=== PATIENT | male | born 1990 | race Caucasian/White ===

== ENCOUNTER 2018-06-17 09:41 | Emergency (ER) | payer MEDICAID, SELFPAY ==
[2018-06-17 09:48] VITALS: BP 143/87; PULSE 69; RESP 16; TEMP 36.5; O2SAT 98
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
--- NOTE | 2018-06-17 10:35 | DI.RAD_ITS ---
SYMPTOM/DIAGNOSIS: SYNCOPE PELVIS AND RIGHT HIP: No fracture or dislocation is seen. The hip joint spaces are well maintained. The pubic symphysis and SI joints appear intact. IMPRESSION: Negative pelvis and right hip
--- NOTE | 2018-06-17 10:35 | DI.RAD_ITS ---
SYMPTOM/DIAGNOSIS: TRAUMA, SACRAL AND TAILBONE PAIN SACRUM AND COCCYX: There is no evidence of fracture. The SI joints and pubic symphysis appear intact. IMPRESSION: Negative sacrum and coccyx.
== END 2018-06-17 11:46 | disposition home or self-care (01) ==
PROVIDERS: Emergency Provider Student in an Organized Health Care Education/Training Program; PCP Family Medicine
DX: M25.551 Pain in right hip (principal); M53.3 Sacrococcygeal disorders, not elsewhere classified; V86.52XA Driver of snowmobile injured in nontraffic accident, initial encounter; Z53.29 Procedure and treatment not carried out because of patient's decision for other reasons; I10 Essential (primary) hypertension
CPT/HCPCS: 99284; 72220; 73502

== ENCOUNTER 2018-06-26 01:03 | Outpatient (CLI) | payer MEDICAID, SELFPAY ==
--- NOTE | 2018-06-26 14:09 | DI.CT_ITS ---
SYMPTOM/DIAGNOSIS: PLEASE R/O ACETABULAR FX. INJURY V86.92XA CT PELVIS: Comparison is made with plain films dated 17 Jun 2018. There is no evidence of acetabular fracture or other fracture. No joint effusion is visible. No soft tissue hematomas are identified. The bladder, prostate and visualized portions of the bowel are unremarkable. IMPRESSION: Negative CT pelvis.
== END 2018-06-26 01:23 ==
PROVIDERS: PCP Family Medicine; Visit Provider Family Medicine
DX: M25.551 Pain in right hip (principal); S79.911D Unspecified injury of right hip, subsequent encounter
CPT/HCPCS: 72192

== ENCOUNTER 2019-03-08 16:37 | Emergency (ER) | payer MEDICAID, SELFPAY ==
--- NOTE | 2019-03-08 16:48 | NUR.NOTE ---
Nursing Note: pt was bitten by his own dog at approximately 1630 left thumb pt is concerned for infection small 2 cm superficial laceration
[2019-03-08 16:49] VITALS: BP 154/95; PULSE 77; RESP 16; TEMP 36.7; O2SAT 99
--- NOTE | 2019-03-08 17:05 | ED.GENADUL_ITS ---
Discharge Plan Disposition Patient Disposition: HOME Condition: Stable Discharge Details Chief Complaint: Laceration Clinical Impression: Dog bite of finger Primary Care Provider: Srinivasa Schmidt ED Provider: Carlene Marquez Home Meds and New Rx's Prescriptions: New amoxicillin-pot clavulanate [Augmentin] 875-125 mg tablet 1 tab PO BID 10 Days Qty: 20 RF: 0 Discharge Instructions Instructions: Animal Bite (ED) Additional Instructions: Take the antibiotics until finished. Keep wound clean and dry. Cover with topical antibiotic ointment if you develop any redness, pain or swelling. Follow-up with your primary care doctor next week for reevaluation. Return to the emergency department if you develop any worsening or new concerning symptoms. Discharge Data Discharge Date/Time-TO BE ENTERED AT DEPARTURE: 03/08/19 18:09 Discharge Physician: Carlene Marquez Medical Decision Making 28-year-old male presents with dog bite to left thumb sustained just prior to arrival. Tetanus up-to-date. There is a 1.5 cm laceration noted proximal to the nailbed without evidence of nail injury. There is no active bleeding. Wound was irrigated. The wound edges are well approximated and there is no gaping open wound that would need even loose stitching. Patient states the dog was a [place] and is a larger dog and denies any chance of foreign body such as tooth. He has no evidence of bony injury and has normal range of motion of the thumb. He is declining x-ray to rule out fracture versus foreign body. He was given 1 dose of Augmentin here as well as prescription. He was instructed on the importance of good wound care to follow-up with his primary care doctor and return here at any time if worse. HPI General Mode of arrival: ambulatory . Date/Time Provider Initiated Documentation: 03/08/19 16:52 . Limitations to Documentation: no limitations . Information obtained by: patient . HPI Narrative: Patient is a 28-year-old male presents with dog bite to his left thumb sustained just prior to arrival. Patient states his own dog is a [place] and bit him while he was trying to get something from him. He states the dog is up-to-date on his shots. Patient states his tetanus is up-to-date. He denies any significant bony pain or excessive bleeding. He denies any other injuries. Related Data Home Medications Medication Instructions Recorded Confirmed amoxicillin-pot clavulanate 1 tab PO BID 10 Days #20 tab 03/08/19 [Augmentin] Previous Rx's Medication Instructions Recorded amoxicillin-pot clavulanate 1 tab PO BID 10 Days #20 tab 03/08/19 [Augmentin] Allergies Allergy/AdvReac Type Severity Reaction Status Date / Time No Known Allergies Allergy Unverified 06/21/18 13:16 General Stated Complaint: Laceration PARKER: 4 Review of Systems Review of Systems All systems reviewed & are unremarkable except as noted in HPI and below Constitutional Reports as per HPI, Denies chills and Denies fever(s) Eyes Denies blurry vision ENT Denies dizziness, Denies sore throat and Denies throat swelling Cardiovascular Denies chest pain and Denies dyspnea Respiratory Denies cough and Denies dyspnea Gastrointestinal Denies abdominal pain, Denies diarrhea and Denies vomiting Genitourinary Denies hematuria and Denies dysuria Musculoskeletal Denies back pain and Denies numbness Integumentary/Breasts Denies lesions and Denies rash Neurologic Denies dizziness, Denies focal weakness and Denies numbness Allergic/Immunologic Denies throat swelling [facility] Medical History No significant past medical history (Acute) Surgical History No significant past surgical history (Acute) Social History Smoking/Tobacco Use Status: Current every day Tobacco Type: cigarettes Counseling given: other Details: patient is decreasing cigs on his own, down to 8/day Alcohol Intake: never Drug use: Never Substance use type: does not use Adopted: Yes Foster care: Yes (in the past, age 12-18) Household members: significant other Number of Children: 1 current occupation: 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 Sexually active: Yes Do you feel safe at home: Yes Do you feel safe in your relationship?: Yes Exam Const General: cooperative, healthy appearing and no acute distress HENMT Head: normal to inspection Mouth: oral mucosae normal Eyes General: appearance normal, both eyes and all related structures Neck Neck: normal visual inspection Resp Effort & Inspection: normal respiratory effort and able to speak in complete se ntences Cardio Rate: regular rate Skin General skin exam: no rashes or lesions noted Neuro General: alert, awake and oriented x3 Motor: muscle tone normal throughout and strength 5/5 throughout Sensory Exam: no sensory deficits noted Other: Normal tendon function noted to left thumb. Normal range of motion. Motor/sensory grossly intact to left thumb. Extrem Other: 1.5 cm straight laceration through skin just proximal to nail bed. There is no active bleeding, surrounding erythema, edema, ecchymosis, induration, fluctuance. No evidence of nail injury. Psych Appearance: grossly normal Affect: normal affect Course Vital Signs Temperature 98.1 F 03/08/19 16:49 Pulse 77 03/08/19 16:49 Respiratory Rate 16 03/08/19 16:49 Blood Pressure 154/95 H 03/08/19 16:49 Pulse Oximetry 99 03/08/19 16:49 Temperature 98.1 F 03/08/19 16:49 Temperature Source Skin 03/08/19 16:49 Pulse 77 03/08/19 16:49 Respiratory Rate 16 03/08/19 16:49 Blood Pressure 154/95 H 03/08/19 16:49 Blood Pressure Position Sitting 03/08/19 16:49 Pulse Oximetry 99 03/08/19 16:49 Oxygen Delivery Method Room Air 03/08/19 16:49 Oxygen Flow Rate 0 03/08/19 16:49 Pain Level 9 03/08/19 16:49
[2019-03-08] MEDS: Amoxicillin 875/Clav. 125 TAB PO ×2 (18:13)
== END 2019-03-08 18:09 | disposition home or self-care (01) ==
PROVIDERS: Emergency Provider Physician Assistant; PCP Family Medicine
DX: S61.052A Open bite of left thumb without damage to nail, initial encounter (principal); W54.0XXA Bitten by dog, initial encounter
CPT/HCPCS: 12001; 99283

== ENCOUNTER 2021-01-06 21:17 | Emergency (ER) | payer MEDICAID, SELFPAY ==
[2021-01-06 21:19] VITALS: BP 163/89; PULSE 84; RESP 20; TEMP 37.1; O2SAT 97
--- NOTE | 2021-01-06 21:31 | W.ED.GENAD ---
Discharge Plan Disposition Patient Disposition: HOME Condition: Stable Discharge Details Chief Complaint: GenMedical Clinical Impression: Cephalgia, Leukocytosis, Adverse effect of COVID-19 vaccine Primary Care Provider: Srinivasa Schmidt ED Provider: Shiv Blue Home Meds and New Rx's Prescriptions: No Action No Known Home Meds RF: 0 Discharge Instructions Instructions: General Headache (ED), Leukocytosis (ED) Additional Instructions: At this time as we discussed your white blood cell count is elevated which can certainly be a very normal reaction to a vaccine however you were given strict return precautions. You are feeling improved and would like to be discharged home. [id number] Tylenol and/or Motrin as directed for discomfort. Rest, plenty of fluids to avoid dehydration. As we discussed, please watch for new or worsening symptoms and return to the ER for any concerns. Medical Decision Making 30-year-old gentleman, history of back surgery at age 14, current smoker, denies any drug use, presents for evaluation via EMS for what he describes as a reaction to his second Pfizer vaccine approximately 3 hours after he received the vaccine at 3 PM today. Clinically he appears well, nontoxic, neurologically intact. I was able to witness him ambulating steadily to the restroom. Upon my evaluation he was using the phone without difficulty. Patient later tells me that his headache is actually common, 2 or 3 times a month, and this began 2 days ago. He states that if he can simply feel a little better he would like to go home. Will obtain IV access, give IV Reglan, Benadryl, IV fluid, Toradol, obtain CBC, CMP, urinalysis and reassess. Patient is comfortable with this plan. Laboratory values reveal leukocytosis of 19.17, absolute neutrophils 13.17, glucose 120, calcium 8.4, AST 12, otherwise unremarkable. Urinalysis without signs of infection. Patient was again witnessed ambulating without difficulty. No focal deficit. No evidence of ataxia. Upon reevaluation he reports feeling much improved with the IV fluid and medication. He reports his headache is almost completely resolved. Continues to deny neck pain, focal weakness, numbness, tingling. No midline point tenderness of his lumbar spine. Denies any IV drug use. The nonspecific leukocytosis very well may be a reaction to his vaccine around 3 PM today. I see no glaring red flags that would indicate meningeal signs, spinal abscess, cauda equina, sepsis, etc. I see no clear indication for advanced imaging of the brain or LP. Patient plans to rest, drink plenty of fluids, alternate between Tylenol and/or Motrin for discomfort. He was given strict return precautions. Medical Records Medical records reviewed: Yes I reviewed the patient's medical records. Lab Data Lab results reviewed: Yes I reviewed the patient's lab results. Labs: Laboratory Tests Range/Units 01/06/21 01/06/21 01/06/21 21:50 21:55 21:55 WBC (4.4-10.8) 10^3/uL 19.17 H RBC (4.36-5.78) 10^6/uL 5.49 Hgb (13.5-17.5) g/dL 16.4 Hct (40.0-50.0) % 47.4 MCV (80-95) fL 86.3 MCH (27.0-33.0) pg 29.9 MCHC (32.0-36.0) % 34.6 RDW (11.8-14.1) % 12.8 Plt Count (130-400) 10^3/uL 210 MPV (8.0-11.0) fL 10.2 Immature Gran % 0.5 Neutrophils % 68.7 Lymphocytes % 19.5 Monocytes % 7.7 Eosinophils % 3.0 Basophils % 0.6 Nucleated RBC % % 0 Absolute Neutrophils (1.2-6.7) 10^3/uL 13.17 H Absolute Lymphocytes (1.2-3.4) 10^3/uL 3.74 H Absolute Monocytes (0.1-0.8) 10^3/uL 1.48 H Absolute Eosinophils (0.0-0.7) 10^3/uL 0.58 Absolute Basophils (0.0-0.2) 10^3/uL 0.12 Sodium (136-145) mmol/L 140 Potassium (3.5-5.1) mmol/L 3.9 Chloride (98-107) mmol/L 103 Carbon Dioxide (21.0-32.0) mmol/L 26.2 Anion Gap (3-11) mmol/L 10.8 BUN (7-18) mg/dL 10 Creatinine (0.70-1.30) mg/dL 1.0 Estimated GFR/1.73 m2 (mL/min/1.73m2) >= 60.00 Glucose (74-106) mg/dL 120 H Calcium (8.5-10.1) mg/dL 8.4 L Total Bilirubin (0.2-1.0) mg/dL 0.4 AST (15-37) U/L 12 L ALT (16-63) U/L 22 Alkaline Phosphatase (46-116) U/L 100 Total Protein (6.4-8.2) g/dL 7.3 Albumin (3.4-5.0) g/dL 3.6 Urine Color (Yellow) Yellow Urine Clarity (Clear) Clear Urine pH (5-8) 6.5 Ur Specific [place] (1.005-1.025) >= 1.030 H Urine Protein (Negative) mg/dL Negative Urine Ketones (Negative) mg/dL Negative Urine Blood (Negative) Negative Urine Nitrite (Negative) Negative Urine Bilirubin (Negative) Negative Urine Urobilinogen (Up TO 0.2) EU/dL 1.0 H Ur Leukocyte Esterase (Negative) Negative Urine Glucose (Negative) mg/dL Negative HPI General Mode of arrival: EMS. Date/Time Provider Initiated Documentation: 01/06/21 21:25. Limitations to Documentation: no limitations. Information obtained by: patient and EMS. HPI Narrative: This is a 30-year-old gentleman, reports past medical history of back surgery at age 14, current smoker, presenting via EMS for what he describes as a reaction to his second Pfizer Covid vaccine at approximately 3 PM this afternoon. Patient reports approximately 3 hours later he developed symptoms that include a global headache, generalized weakness, worse in his bilateral legs, chills. He took 800 mg of Motrin prior to arrival. Patient later tells me that he has had this headache for the past 2 days, gets 2 or 3 similar migraines a month. He reports the migraine came on slowly, is global but has progressed over the past couple of days, only partially treated with [id number] medications, moderate now. He denies recent illness or trauma. He denies fever, visual changes, neck pain, chest pain, shortness of breath, abdominal pain, nausea vomiting, change in bowel or bladder function, numbness, tingling, focal weakness. He also reports body aches, worse in his lower back and bilateral legs. Related Data Home Medications Medication Instructions Recorded Confirmed Unknown [No Known Home Meds] 01/06/21 01/06/21 Allergies Allergy/AdvReac Type Severity Reaction Status Date / Time No Known Allergies Allergy Unverified 01/06/21 21:25 General Stated Complaint: GenMedical PARKER: 2 Review of Systems Constitutional Constitutional: Denies fatigue, Denies fever(s) and Reports headache(s) Eyes Eyes: Denies change in vision ENT Ears, Nose, Mouth, and Throat: Reports headache(s) and Denies neck pain Cardiovascular Cardiovascular: Denies chest pain and Denies dyspnea Respiratory Respiratory: Denies cough and Denies dyspnea Gastrointestinal Gastrointestinal: Denies abdominal pain, Denies nausea and Denies vomiting Genitourinary Genitourinary: Denies dysuria Musculoskeletal Musculoskeletal: Reports back pain, Reports myalgias, Denies neck pain, Denies numbness, Denies stiffness and Denies tingling Integumentary/Breasts Skin/Breast: Denies rash Neurologic Neurologic: Reports headache(s), Denies numbness, Denies tingling and Reports weakness (Generalized, no focal) Endocrine Endocrine: Denies fatigue [facility] Medical History (Updated 01/06/21 @ 22:49 by TAVO Palacios) No significant past medical history Surgical History No significant past surgical history Social History Smoking/Tobacco Use Status: Current every day Tobacco Type: cigarettes Counseling given: other Details: patient is decreasing cigs on his own, down to 8/day Smoking risk assessment performed?: Yes Alcohol Intake: never Drug use: Never Substance use type: does not use Adopted: Yes Foster care: Yes (in the past, age 12-18) Household members: significant other Number of Children: 1 current occupation: 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 Sexually active: Yes Do you feel safe at home: Yes Do you feel safe in your relationship?: Yes Exam Const General: cooperative, healthy appearing, comfortable and no acute distress Orientation: alert, awake and oriented x3 HENMT Head: normal to inspection, normocephalic and atraumatic Face and sinus: normal facial exam Mouth: moist mucous membranes Throat: posterior oropharynx normal Eyes General: appearance normal, both eyes and all related structures Alignment and Position: alignment normal Periorbital: periorbital findings normal Eyelids: eyelids normal Conjunctivae: conjunctivae normal Sclera: sclerae normal Cornea: corneas normal Pupils: PERRL EOM: EOM intact bilaterally Direct ophthalmoscopy: normal light reflex Neck Neck: normal visual inspection, full ROM, no lymphadenopathy, no meningeal signs, trachea midline, supple and nontender Resp Effort & Inspection: normal respiratory effort and able to speak in complete sentences Auscultation: clear to auscultation bilaterally Cardio Rate: regular rate Rhythm: regular rhythm GI Palpation: soft and nontender Auscultation: normal bowel sounds Back/Spine/Pelvis Back: no CVA tenderness and back tenderness (Diffuse mild lumbar) Skin General skin exam: no rashes or lesions noted Neuro General: patient alert, patient awake, patient oriented x3, moves all extremities and no focal motor deficits Cognition: normal cognition Speech: speech normal Gait: normal gait Motor: muscle tone normal throughout and strength 5/5 throughout Sensory Exam: no sensory deficits noted Extrem General: normal to inspection, full ROM, capillary refill normal, no pedal edema and no calf tenderness Psych Appearance: grossly normal Mental Status: mental status grossly normal Course Vital Signs Vital signs: Vital Signs Temperature 37.1 C 01/06/21 21:19 Pulse 84 01/06/21 21:19 Respiratory Rate 20 01/06/21 21:19 Blood Pressure 163/89 H 01/06/21 21:19 Pulse Oximetry 97 01/06/21 21:19 Temperature 37.1 C 01/06/21 21:19 Temperature Source Skin 01/06/21 21:19 Pulse 84 01/06/21 21:19 Respiratory Rate 20 01/06/21 21:19 Respiratory Effort Non-Labored 01/06/21 21:26 Blood Pressure 163/89 H 01/06/21 21:19 Blood Pressure Position Supine 01/06/21 21:19 Pulse Oximetry 97 01/06/21 21:19 Oxygen Delivery Method Room Air 01/06/21 21:19 Oxygen Flow Rate 0 01/06/21 21:19 Pain Level 9 01/06/21 21:19
[2021-01-06] MEDS: Normal Saline 1,000 ML 1000 ML IV (22:12)
[2021-01-06] MEDS: diphenhydrAMINE 50 MG/ML VIAL 25 MG IVP (22:13)
[2021-01-06] MEDS: Ketorolac 30 MG/ML VIAL IVP (22:15)
[2021-01-06] MEDS: Metoclopramide 10 MG/2 ML VIAL IVP (22:16)
[2021-01-06 22:17] LABS: Bilirubin Negative (Negative); Blood Negative (Negative); Clarity Clear (Clear); Glucose Negative (Negative); Ketones Negative (Negative); Leukocyte Esterase Negative (Negative); Nitrite Negative (Negative); Specific Gravity >= 1.030 (1.005-1.025); pH 6.5 (5-8)
[2021-01-06 22:18] LABS: ALT 22 U/L (16-63); Albumin 3.6 g/dL (3.4-5.0); Alkaline Phosphatase 100 U/L (46-116); Anion Gap 10.8 mmol/L (3-11); BUN 10 mg/dL (7-18); Bilirubin, Total 0.4 mg/dL (0.2-1.0); CO2 26.2 mmol/L (21.0-32.0); Calcium 8.4 mg/dL (8.5-10.1); Chloride 103 mmol/L (98-107); Glucose 120 mg/dL (74-106); Potassium 3.9 mmol/L (3.5-5.1); Sodium 140 mmol/L (136-145); Total Protein 7.3 g/dL (6.4-8.2)
[2021-01-06 22:20] VITALS: BP 156/80; PULSE 76; RESP 20; O2SAT 97
[2021-01-06 22:26] LABS: AST 12 U/L (15-37); Abs Immature Grans 0.09 10^3/uL (0.0-0.06); Absolute Monocyte Count 1.48 10^3/uL (0.1-0.8); Basophils % 0.6; HCT 47.4 % (40.0-50.0); HGB 16.4 g/dL (13.5-17.5); Immature Grans % 0.5; Lymphocytes % 19.5; MCH 29.9 pg (27.0-33.0); MCHC 34.6 % (32.0-36.0); MCV 86.3 fL (80-95); MPV 10.2 fL (8.0-11.0); Monocytes % 7.7; Neutrophils % 68.7; Nucleated RBC 0 %; Platelet Count 210 10^3/uL (130-400); RBC 5.49 10^6/uL (4.36-5.78); RDW 12.8 % (11.8-14.1); RDW-SD 40.3 fL; WBC 19.17 10^3/uL (4.4-10.8)
[2021-01-06 22:32] LABS: Absolute Basophil Count 0.12 10^3/uL (0.0-0.2); Absolute Eosinophil Count 0.58 10^3/uL (0.0-0.7); Absolute Lymphocyte Count 3.74 10^3/uL (1.2-3.4); Absolute Neutrophil Count 13.17 10^3/uL (1.2-6.7)
[2021-01-06 22:45] VITALS: BP 152/80; PULSE 80; RESP 20; O2SAT 97
[2021-01-06 23:15] VITALS: BP 149/72; PULSE 79; RESP 20; O2SAT 97
== END 2021-01-06 23:49 | disposition home or self-care (01) ==
PROVIDERS: Emergency Provider Physician Assistant; PCP Family Medicine
DX: R51.9 Headache, unspecified (principal); D72.829 Elevated white blood cell count, unspecified; T50.B95A Adverse effect of other viral vaccines, initial encounter
CPT/HCPCS: 36415; 80053; 96361; 96374; 96375; 99284; 81003; 85025; 99283; J1200; J1885; J2765

== ENCOUNTER 2021-11-27 20:12 | Emergency (ER) | payer MEDICAID, SELFPAY ==
[2021-11-27 20:30] VITALS: BP 153/94; PULSE 84; RESP 14; TEMP 35.9; O2SAT 98
--- NOTE | 2021-11-27 20:55 | ED.GENADUL_ITS ---
Discharge Plan Disposition Patient Disposition: HOME Condition: Improving Discharge Details Chief Complaint: EarProblem Clinical Impression: Ear foreign body Primary Care Provider: Srinivasa Schmidt ED Provider: Liborio Mckinney Home Meds and New Rx's Prescriptions: No Action lisinopril 10 mg tablet 10 mg PO DAILY Qty: 90 3RF Discharge Instructions Instructions: Ear Foreign Body (ED) Additional Instructions: Please keep the ear clean and dry. Do not clean deeply with Q-tip. Use hydroperoxide to soak external canal this evening. Please return emergency department if you develop trouble hearing bleeding pus drainage swelling redness headache fevers or other abnormal signs or symptoms. Medical Decision Making 31-year-old male presents with debris in right external ear canal in setting of working under a car, dirt and rocks material. No auditory changes. Does have superficial abrasion to external component of right ear canal where he is attempted to use a Q-tip to remove debris, TM intact. Up-to-date on vaccinations. Was able to use 3 to 5 cc of sterile normal saline with 20-gauge catheter tip to flush external canal, removing multiple small pieces of dirt and rust material. Patient's canal is hemostatic, TM is intact. Hearing intact. No further debris in canal. Home care instructions and return precautions given. HPI General Date/Time Provider Initiated Documentation: 11/27/21 20:19 . HPI Narrative: 31-year-old male denies past medical history presents with right ear discomfort endorses working under a car and having dirt and rust debris fall into his right ear canal. Denies trouble hearing does endorse some irritation to ear canal, attempted to use a Q-tip to scrape out the material and noticed some blood on the Q-tip. He is up-to-date on vaccinations Related Data Home Medications Medication Instructions Recorded Confirmed lisinopril 10 mg tablet 10 mg PO DAILY #90 tab 01/18/21 11/27/21 Previous Rx's Medication Instructions Recorded lisinopril 10 mg tablet 10 mg PO DAILY #90 tab 01/18/21 Allergies Allergy/AdvReac Type Severity Reaction Status Date / Time No Known Allergies Allergy Verified 11/27/21 20:34 General Stated Complaint: EarProblem PARKER: 4 Review of Systems Narrative: Review of Systems Constitutional: negative Eyes: negative ENT: Ear canal foreign bodies Cardiovascular: negative Respiratory: negative Gastrointestinal: negative : negative Musculoskeletal: negative Skin: negative Neurologic: negative Psych: negative PFSH All Active Problems (Updated 11/27/21 @ 21:02 by Liborio Mckinney MD) Ear foreign body (Acute) Cephalgia (Acute) Leukocytosis (Acute) Adverse effect of COVID-19 vaccine (Acute) Essential hypertension (Acute 11/02/17) Medical History (Updated 11/27/21 @ 21:02 by Liborio Mckinney MD) No significant past medical history Surgical History No significant past surgical history Social History Smoking/Tobacco Use Status: Current every day Tobacco Type: cigarettes Counseling given: other Details: patient is decreasing cigs on his own, down to 8/day Smoking risk assessment performed?: Yes Alcohol Intake: never Drug use: Never Substance use type: does not use Adopted: Yes Foster care: Yes (in the past, age 12-18) Household members: significant other Number of Children: 1 current occupation: 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 Sexually active: Yes Do you feel safe at home: Yes Do you feel safe in your relationship?: Yes Exam Narrative Exam Narrative: Physical Examination General: alert, awake, cooperative, resting comfortably, no acute distress HEENT: Dirt and rust material in right ear canal, right TM intact, superficial a brasion to external portion of ear canal hemostatic; normocephalic, atraumatic; PERRL, EOM intact, conjunctiva normal; no nasal discharge; moist mucous membranes, oral and pharyngeal mucosa normal, tolerating secretions Neck: supple, trachea midline; full ROM Chest: normal to inspection Respiratory: normal respiratory effort, speaking in full sentences, clear to auscultation, no wheezing, rales or rhonchi Cardiac: regular rate, regular rhythm, S1S2 intact, no murmurs rubs or gallops GI: abdomen soft, non-tender, non-distended; no palpable mass or hepatosplenomegaly Skin: no lesions, rashes or trauma appreciated Neuro: AAOx3, normal speech, moving all extremities Psych: Appropriate mood and affect Course Vital Signs Vital signs: Vital Signs Temperature 35.9 C L 11/27/21 20:30 Pulse 84 11/27/21 20:30 Respiratory Rate 14 11/27/21 20:30 Blood Pressure 153/94 H 11/27/21 20:30 Pulse Oximetry 98 11/27/21 20:30 Temperature 35.9 C L 11/27/21 20:30 Temperature Source Temporal Artery Scan 11/27/21 20:30 Pulse 84 11/27/21 20:30 Respiratory Rate 14 11/27/21 20:30 Blood Pressure 153/94 H 11/27/21 20:30 Blood Pressure Position Sitting 11/27/21 20:30 Pulse Oximetry 98 11/27/21 20:30 Oxygen Delivery Method Room Air 11/27/21 20:30 Oxygen Flow Rate 0 11/27/21 20:30 Procedures FB Removal Ear Location: ear canal (R) Foreign Body Suspected: other (rust and dirt) TM intact pre-procedure: yes Foreign Body Removed: yes Foreign Body Removal Technique: irrigation Tympanic Membrane Intact: Yes Patient Tolerated Procedure: well
== END 2021-11-27 21:34 | disposition home or self-care (01) ==
PROVIDERS: Emergency Provider Emergency Medicine; PCP Family Medicine
DX: T16.1XXA Foreign body in right ear, initial encounter (principal); X58.XXXA Exposure to other specified factors, initial encounter
CPT/HCPCS: 99282

== ENCOUNTER 2022-01-03 14:26 | Emergency (ER) | payer MEDICAID, SELFPAY ==
[2022-01-03 14:28] VITALS: BP 143/77; PULSE 75; RESP 16; O2SAT 97
--- NOTE | 2022-01-03 15:00 | DI.MRI_ITS ---
Exam(s) MR LUMBAR SPINE WO EXAM: MR LUMBAR SPINE WO CLINICAL HISTORY: back pain, prior surgery, right leg weakness. TECHNIQUE: Multiplanar multisequence MRI of the Lumbar spine was performed. COMPARISON: No exams were available for comparison FINDINGS: Conus medullaris is at normal level. There is no evidence of conus mass nor subjacent clumping of in trathecal nerve roots to suggest arachnoiditis. The distal thecal sac appears unremarkable.There is no evidence of Tarlov intrasacral cysts nor other significant findings within the sacral canal Bones:There are no fractures nor ominous osseous lesions in the lumbar vertebral bodies and visualize d sacrum. With respect to the individual levels... T12-L1: Unremarkable L1-2: Normal disc height and signal. No disc herniation nor central canal stenosis.No foraminal steno sis L2-3: Normal disc height. No disc herniation nor central canal stenosis.No foraminal stenosis.No face t arthropathy. L3-4: Normal disc height. No disc herniation or central canal stenosis.No foraminal stenosis.No face t arthropathy. L4-5: Normal disc height and signal. No disc herniation or canal stenosis. No foraminal stenosis. No facet arthropathy. L5-S1: Normal disc height with some decreased disc hydration signal. There is linear tear in the pos terior annulus with the subligamentous disc herniation extending posteriorly 6 millimeters and approx imately 1.5 cm wide. This contacts the anterior aspect of the thecal sac but without prominent compr ession. Does not obliterate the lateral recesses and does not extend significantly into the exiting neural foramina on either side. Facet joints appear unremarkable. Soft tissues: paraspinal soft tissues appear unremarkable. IMPRESSION: 1. L5-S1 disc herniation as described above. This is predominantly central subligamentous. 2. This disc herniation does not extend into the exiting neural foramina. 3. Although there are disc spaces appear unremarkable and there is no significant facet arthropathy i n the lumbosacral spinal column. DATA REPOSITORY:
[2022-01-03 15:16] VITALS: BP 140/74; PULSE 72; O2SAT 97
[2022-01-03 15:17] VITALS: O2SAT 97
--- NOTE | 2022-01-03 15:27 | W.ED.GENAD ---
Discharge Plan Disposition Patient Disposition: HOME Condition: Stable Discharge Details Clinical Impression: Lumbar radicular pain, Lumbar disc herniation Primary Care Provider: Srinivasa Schmidt ED Provider: Josy Rivera Home Meds and New Rx's Prescriptions: New cyclobenzaprine 10 mg tablet 10 mg PO TID PRNQty: 10 0RF prednisone 20 mg tablet 40 mg PO DAILY Qty: 10 0RF Discharge Instructions Additional Instructions: Please follow-up with your primary care physician [facility] internal medicine Do not lift more than 5 pounds Continue light stretching Take the prednisone as prescribed and the Flexeril as needed for musculoskeletal pain return should you develop changes in bowel or bladder, fever, chills, or if you are unable to ambulate You may take Tylenol 650 mg every 4-6 hours Stand Alone Forms: Physical Therapy Referral Discharge Data Discharge Date/Time-TO BE ENTERED AT DEPARTURE: 01/03/22 16:34 Medical Decision Making The lumbar spine MRI was discussed with Dr. Blackwell and results reviewed by me were available Patient has an L5-S1 disc herniation I and on reassessment is actually ambulatory with antalgic gait, this was personally reviewed with me Will on prednisone and referred to PCP in the outpatient setting Will take Flexeril as needed for musculoskeletal pain No evidence of cauda equina syndrome clinically Return precautions discussed and patient expressed understanding Diminished dorsiflexion and plantarflexion found related to patient's prior surgery to his ankle and states is not new for him HPI General Date/Time Provider Initiated Documentation: 01/03/22 15:06. HPI Narrative: This 31-year-old male presents with reports of back pain for the past several days. He states that he has prior history of surgery on his back. He states he broke his back, when he was 14 years old when an engine fell. He states he had surgery at [facility]. He states over the past several days of pain in his lumbar spine has worsened. He denies any specific trauma. He states today he had right leg weakness which is why he presents. He is the pain in his lumbar spine is also worse. He denies history of IV drug abuse. He denies abdominal pain, pain, shortness of breath. He denies any changes in bowel or bladder. He denies any fever or chills. He denies taking any medications prior to arrival. Related Data Home Medications Medication Instructions Recorded Confirmed cyclobenzaprine 10 mg tablet 10 mg PO TID PRN #10 tabs 01/03/22 prednisone 20 mg tablet 40 mg PO DAILY #10 tabs 01/03/22 Previous Rx's Medication Instructions Recorded cyclobenzaprine 10 mg tablet 10 mg PO TID PRN #10 tabs 01/03/22 prednisone 20 mg tablet 40 mg PO DAILY #10 tabs 01/03/22 Allergies Allergy/AdvReac Type Severity Reaction Status Date / Time No Known Allergies Allergy Verified 01/03/22 14:34 General Stated Complaint: Orthopedic PARKER: 3 Review of Systems All systems reviewed & are unremarkable except as noted in HPI and below PFSH All Active Problems (Updated 01/03/22 @ 16:14 by TAVO Natahn) Lumbar radicular pain (Acute) Lumbar disc herniation (Acute) Cephalgia (Acute) Leukocytosis (Acute) Adverse effect of COVID-19 vaccine (Acute) Essential hypertension (Acute 11/02/17) Medical History (Updated 01/03/22 @ 16:14 by TAVO Nathan) No significant past medical history Surgical History No significant past surgical history Social History Smoking/Tobacco Use Status: Current every day Tobacco Type: cigarettes Counseling given: other Details: patient is decreasing cigs on his own, down to 8/day Smoking risk assessment performed?: Yes Alcohol Intake: never Drug use: Never Substance use type: does not use Adopted: Yes Foster care: Yes (in the past, age 12-18) Household members: significant other Number of Children: 1 current occupation: 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 Sexually active: Yes Do you feel safe at home: Yes Do you feel safe in your relationship?: Yes Exam Const General: cooperative, comfortable and no acute distress Eyes Pupils: PERRL Resp Effort & Inspection: normal respiratory effort Auscultation: clear to auscultation bilaterally Cardio Rate: regular rate Rhythm: regular rhythm Other: distal pulses intact GI Inspection: normal to inspection Other: non-tender abdominal exam Skin General skin exam: no rashes or lesions noted Neuro General: patient alert and patient oriented x3 Cranial Nerves: CN's II-XI intact bilaterally Cognition: normal cognition Speech: speech normal Other: Patient with mildly diminished dorsiflexion and plantarflexion Sensation intact for patient Positive straight leg raise Negative Babinski bilaterally Course Vital Signs Vital signs: Vital Signs Pulse 75 01/03/22 14:28 Respiratory Rate 16 01/03/22 14:28 Blood Pressure 143/77 H 01/03/22 14:28 Pulse Oximetry 97 01/03/22 14:28 Temperature Source Temporal Artery Scan 01/03/22 14:28 Pulse 75 01/03/22 14:28 Respiratory Rate 16 01/03/22 14:28 Respiratory Effort Non-Labored 01/03/22 14:33 Blood Pressure 143/77 H 01/03/22 14:28 Blood Pressure Position Sitting 01/03/22 14:28 Pulse Oximetry 97 01/03/22 14:28 Oxygen Delivery Method Room Air 01/03/22 14:28 Oxygen Flow Rate 0 01/03/22 14:28 Pain Level 10 01/03/22 14:28
[2022-01-03] MEDS: predniSONE 20 MG TAB 40 MG PO (16:15)
[2022-01-03] MEDS: Cyclobenzaprine 10 MG TAB PO (16:15)
[2022-01-03 16:28] VITALS: O2SAT 99
[2022-01-03 16:29] VITALS: BP 143/84; PULSE 70
[2022-01-03 16:33] VITALS: TEMP 36.6
== END 2022-01-03 16:34 | disposition home or self-care (01) ==
LOC: ER 16:28
PROVIDERS: Emergency Provider Physician Assistant; PCP Family Medicine
DX: M51.16 Intervertebral disc disorders with radiculopathy, lumbar region (principal); R53.1 Weakness
CPT/HCPCS: 99283; 72148; J7512

== ENCOUNTER 2024-07-03 19:36 | Emergency (ER) | payer MEDICAID, SELFPAY ==
[2024-07-03 19:39] VITALS: BP 175/111; PULSE 88; RESP 18; TEMP 37.5; O2SAT 97
--- NOTE | 2024-07-03 19:43 | W.ED.GENAD ---
Discharge Plan Disposition Patient Disposition: Home Condition: Stable Discharge Details Clinical Impression: Gastroenteritis Primary Care Provider: Srinivasa Schmidt ED Provider: Pradeep Bhagat Home Meds and New Rx's Prescriptions: New ondansetron 4 mg tablet,disintegrating 4 mg PO Q8H PRNQty: 30 0RF Discharge Instructions Instructions: Viral gastroenteritis in adults, Ondansetron Additional Instructions: You were seen in the emergency department for your diffuse generalized abdominal pain that improves with bowel movements, you state you have diarrhea nausea and vomiting, I am sent you home with a nausea medicine called ondansetron and I have sent a prescription for this medicine to [facility] in [place], you may take [id number] Imodium A-D for diarrhea, please stay well-hydrated, return to the emergency department for any severe increase in abdominal pain especially with fever, intractable nausea/vomiting, chest pain, shortness of breath. Referrals: Srinivasa Schmidt DO [Primary Care Provider] - Discharge Data Discharge Date/Time-TO BE ENTERED AT DEPARTURE: 07/03/24 20:45 HPI General Date/Time Provider Initiated Documentation: 07/03/24 19:42. HPI Narrative: 34 year-old male presents to ED today by POV/ambulating with a chief complaint of 2 days of nausea/vomiting, diarrhea, cramping abdominal pain. Quality described as generalized abdominal pain that is relieved with bowel movements that have been completely liquid with some nausea and scant vomiting, patient endorses chills and muscle aches but denies cough or respiratory symptoms, no radiation to chest pain, shortness of breath, hematochezia or melena, hemoptysis, hematemesis, severe constant abdominal pain, flank pain, dysuria. Severity is described as moderate. Palliating factors include nothing specific attempted. Provoking factors include nothing specific. Events leading up to the incident/Associated Symptoms: Patient states he has been exposed to somebody with flu. Patient not anticoagulated. Related Data Home Medications ?Medication ?Instructions ?Recorded ?Confirmed ondansetron 4 mg disintegrating 4 mg PO Q8H PRN #30 tabs 07/03/24 tablet Previous Rx's ?Medication ?Instructions ?Recorded ondansetron 4 mg disintegrating 4 mg PO Q8H PRN #30 tabs 07/03/24 tablet Allergies Allergy/AdvReac Type Severity Reaction Status Date / Time No Known Allergies Allergy Verified 07/03/24 19:43 General Stated Complaint: Abd Prob PARKER: 3 Review of Systems All systems reviewed & are unremarkable except as noted in HPI and below Exam Narrative Exam Narrative: GENERAL APPEARANCE: Well-nourished, non-toxic, awake and alert, atraumatic, no acute distress. SKIN: Warm, pink, dry, intact, without rashes/lesions/ulcerations. HEAD: Normocephalic, atraumatic, normal hair distribution for gender/age. EYES: Normal conjunctiva, no exudates on lids/lashes. ENT: Nares patent, no circumoral cyanosis, no facial swelling NECK: Supple, trachea midline, painless cervical ROM. LUNGS/CHEST: Lungs CTA bilaterally- no rhonchi/rales/wheezes diffusely, non-labored respirations, normal A/P diameter, symmetrical expansion, no chest wall deformity HEART (CV/PV): Regular rate and rhythm without murmur, no peripheral edema, no JVD. ABDOMEN: Soft, non-distended, no guarding, no tenderness to palpation. MSK: Normal ROM, no swelling/deformity to bilateral UEs or LEs, moving all extremities without weakness, no cyanosis, spine midline without tenderness, normal curvature. NEURO: Mental Status AAOx4 - alert to person, place, time, events No facial droop, no forehead involvement. Motor: No focal weakness - strength 5/5 in bilateral UEs and LEs, proximal and distal, symmetric. Sensory: sensation intact to light touch globally. Gait normal: patient ambulated without ataxia into ED room. PSYCH: euthymic, cooperative, pleasant, appropriate speech Course Vital Signs Vital signs: Vital Signs Temperature 37.5 C 07/03/24 19:39 Pulse 88 07/03/24 19:39 Respiratory Rate 18 07/03/24 19:39 Blood Pressure 175/111 H 07/03/24 19:39 Pulse Oximetry 97 07/03/24 19:39 Temperature 37.5 C 07/03/24 19:39 Pulse 88 07/03/24 19:39 Respiratory Rate 18 07/03/24 19:39 Respiratory Effort Normal 07/03/24 19:43 Blood Pressure 175/111 H 07/03/24 19:39 Pulse Oximetry 97 07/03/24 19:39 Pain Level 0 07/03/24 19:39 Medical Decision Making This dictation utilizes [id number] dictation software and may contain unedited grammatical errors. 34 year-old male presents to ED today by POV/ambulating with a chief complaint of 2 days of nausea/vomiting, diarrhea, cramping abdominal pain. Quality described as generalized abdominal pain that is relieved with bowel movements that have been completely liquid with some nausea and scant vomiting, patient endorses chills and muscle aches but denies cough or respiratory symptoms, no radiation to chest pain, shortness of breath, hematochezia or melena, hemoptysis, hematemesis, severe constant abdominal pain, flank pain, dysuria. Severity is described as moderate. Palliating factors include nothing specific attempted. Provoking factors include nothing specific. Events leading up to the incident/Associated Symptoms: Patient states he has been exposed to somebody with flu. Patients' medical history: Negative, otherwise healthy. Family and social history: Possible exposure to flu in close contact. Pertinent exam findings / vital signs include benign abdomen, lungs CTA, nontoxic vitals. Differential / pathologies of concern include gastroenteritis, unlikely influenza, unlikely sepsis, not intractable nausea or vomiting. Diagnostic studies of: -Patient refused blood work, COVID and flu/RSV swab is pending patient request to leave before results. -Resulted negative Interventions of: -Ondansetron to go. ED Course/Assessment/Plan: 34-year-old male presents with gastroenteritis syndrome, has been having 2 days of nausea vomiting and diarrhea, I counseled him on likely gastroenteritis of a viral nature and recommend Imodium A-D at home as well as staying well-hydrated, provided Zofran prescription as well as Zofran to go, patient was comfortable with this disposition and will return for any severe increase in abdominal pain with fever intractable nausea or vomiting, any respiratory distress. Findings not consistent with sepsis, intractable nausea or vomiting. Disposition of gastroenteritis. Patient verbalized understanding of the plan and return to ED criteria and engaged in shared decision making. Medical Records Medical records reviewed: Yes I reviewed the patient's medical records. Lab Data Lab results reviewed: Yes I reviewed the patient's lab results. Labs: Laboratory Tests Range/Units 07/03/24 19:43 COVID-19 Source Nasopharynx SARS-CoV-2 (PCR) (Negative) Negative Influenza Type A (PCR) (Negative) Negative Influenza Type B (PCR) (Negative) Negative RSV (PCR) (Negative) Negative Quality:SDOH Health Related Social Needs: No Data to Display PFSH All Active Problems (Updated 07/03/24 @ 19:53 by TAVO Wong) Gastroenteritis (Acute) Cephalgia (Acute) Leukocytosis (Acute) Adverse effect of COVID-19 vaccine (Acute) Essential hypertension (Acute 11/02/17) Medical History (Updated 07/03/24 @ 19:53 by TAVO Wong) No significant past medical history Surgical History No significant past surgical history Social History Smoking/Tobacco Use Status: Current every day Tobacco Type: cigarettes Counseling given: other Details: patient is decreasing cigs on his own, down to 8/day Smoking risk assessment performed?: Yes Alcohol Intake: never Drug use: Never Substance use type: does not use Adopted: Yes Foster care: Yes (in the past, age 12-18) Household members: significant other Number of Children: 1 current occupation: 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 Sexually active: Yes Do you feel safe at home: Yes Do you feel safe in your relationship?: Yes
[2024-07-03 20:21] LABS: COVID-19 PCR Negative (Negative); Influenza A PCR Negative (Negative); Influenza B PCR Negative (Negative); RSV PCR Negative (Negative)
[2024-07-03] MEDS: Ondansetron O.D.T. 4 MG TABEF, 3 TABS/BTL PO (20:28)
[2024-07-03 20:30] LABS: Source Nasopharynx
== END 2024-07-03 20:45 | disposition home or self-care (01) ==
PROVIDERS: Emergency Provider Physician Assistant; PCP Family Medicine
DX: K52.9 Noninfective gastroenteritis and colitis, unspecified (principal); F17.210 Nicotine dependence, cigarettes, uncomplicated
CPT/HCPCS: 87637; 99283

== ENCOUNTER 2024-09-14 12:26 | Emergency (ER) | payer MEDICAID, SELFPAY ==
[2024-09-14 12:29] VITALS: BP 155/88; PULSE 92; RESP 18; TEMP 36.5; O2SAT 97
--- NOTE | 2024-09-14 13:45 | ED.GENADUL_ITS ---
Discharge Plan Disposition Patient Disposition: Home Condition: Stable Discharge Details Clinical Impression: Rash, Excoriation of left forearm Primary Care Provider: Srinivasa Schmidt ED Provider: Nancy Guzman Discharge Instructions Instructions: Skin Rash ED Additional Instructions: You were seen in the emergency department today for evaluation of a skin rash. In our department he had a full physical examination performed, had findings concerning for scratching over the skin, potentially due to an allergic reaction or effect of the swordfish that you ate. We recommend that you start an unxd-nsu-dhsiefw antihistamine medication such as Benadryl or cetirizine, and utilize hydrocortisone cream as needed for itching or irritation. Please follow-up with your primary care provider in the next few days to discuss this visit and any symptoms that change, worsen, or persist. Thank you for allowing us to be part of your care. Discharge Data Discharge Date/Time-TO BE ENTERED AT DEPARTURE: 09/14/24 13:57 HPI General Mode of arrival: ambulatory . Date/Time Provider Initiated Documentation: 09/14/24 12:35 . Limitations to Documentation: no limitations . Information obtained by: patient and old records reviewed . HPI Narrative: HPI: This is a 34-year-old male patient with history of hypertension who is presenting for evaluation of a left hand and forearm rash. The patient reports that he woke up with this rash, which is itchy, and states that he is most concerned that he is having an allergic reaction to swordfish which he ate last night. The patient reports that he has eaten swordfish in the past without difficulty, has no other known allergies. He has no other known new exposures such as detergents, soaps, clothing, etc. He does not have a rash on any other part of his body, is not experiencing shortness of breath, throat swelling or tightness, or nausea/vomiting. The patient reports that he took some Benadryl for the rash, feels like his itching is slightly better. Exam: Gen: Awake and alert, in no apparent distress HEENT: Non-icteric sclera Neck: Supple, no stridor Lungs: No apparent respiratory distress, normal respiratory effort. Lung sounds clear and equal bilaterally CV: Appears well perfused, heart with regular rate and rhythm Abdomen: Non-distended MSK: Moves 4 extremities without apparent limitation in ROM Skin: Visualized skin of the dorsal aspect of the left hand and forearm reveals petechiae in a pattern most consistent with excoriation, no blistering, hives/urticaria. Neuro: Normal Gait, no obvious focal deficits or facial asymmetry. Speaks in full, clear sentences. Psych: Appropriate for situation. MDM: This is a 34-year-old male patient presenting for evaluation of a rash. My differentials include but are not limited to allergic reaction, patient does not meet criteria for anaphylaxis given that he has an isolated rash and no respiratory involvement or other organ systems involved. I certainly considered excoriation in the setting of itching. The pattern of the excoriation is less concerning for infestation, and the distribution of the petechiae is unilateral, and less concerning for thrombocytopenia or bleeding disorder given the historical context. The patient's symptoms are not consistent with scombroid or ciguatera. ED Course: I provided the patient with hydrocortisone cream to be used for itching, and recommended ongoing Benadryl or cetirizine for itching or rash. He will follow-up with his primary care provider for reassessment. At this time, the patient has had a full medical evaluation and is safe for dis charge to home. They are hemodynamically stable, ambulatory, and tolerating PO. They are understanding of the follow-up plan and return precautions. They left our facility without incident. Nancy Guzman MD Related Data Allergies Allergy/AdvReac Type Severity Reaction Status Date / Time No Known Allergies Allergy Verified 09/14/24 13:14 General Stated Complaint: RashLesion PARKER: 4 Course Vital Signs Vital signs: Vital Signs Temperature 36.5 C 09/14/24 12:29 Pulse 92 H 09/14/24 12:29 Respiratory Rate 18 09/14/24 12:29 Blood Pressure 155/88 H 09/14/24 12:29 Pulse Oximetry 97 09/14/24 12:29 Temperature 36.5 C 09/14/24 12:29 Temperature Source Oral 09/14/24 12:29 Pulse 92 H 09/14/24 12:29 Respiratory Rate 18 09/14/24 12:29 Blood Pressure 155/88 H 09/14/24 12:29 Pulse Oximetry 97 09/14/24 12:29 Oxygen Delivery Method Room Air 09/14/24 12:29 Oxygen Flow Rate 0 09/14/24 12:29 Medical Decision Making Quality:SDOH Health Related Social Needs: No Data to Display PFSH All Active Problems (Updated 09/14/24 @ 13:46 by Nancy Guzman MD) Excoriation of left forearm (Acute) Rash (Acute) Cephalgia (Acute) Leukocytosis (Acute) Adverse effect of COVID-19 vaccine (Acute) Essential hypertension (Acute 11/02/17) Medical History (Updated 09/14/24 @ 13:46 by Nancy Guzman MD) No significant past medical history Surgical History No significant past surgical history Social History Smoking/Tobacco Use Status: Current every day Tobacco Type: cigarettes Counseling given: other Details: patient is decreasing cigs on his own, down to 8/day Smoking risk assessment performed?: Yes Alcohol Intake: never Drug use: Never Substance use type: does not use Adopted: Yes Foster care: Yes (in the past, age 12-18) Household members: significant other Number of Children: 1 current occupation: 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 Sexually active: Yes Do you feel safe at home: Yes Do you feel safe in your relationship?: Yes PAWSS Have you Been Recently Intoxicated or Drunk Within the Last 30 days?: No Have you Ever Experienced Previous Episodes of Alcohol Withdrawal?: No Have you ever Experienced Withdrawal Seizures?: No Have you ever Experienced Delirium Tremens(DT)s?: No Have you ever undergone Alcohol Rehabilitation Treatment (i.e, inpt ot outpatient treatment programs)?: No Have you ever Experienced Blackouts?: No Have you ever Combined Alcohol with other Downers within the last 90 days?: No Have you ever Combined Alcohol with any other Substance of Abuse during the last 90 days?: No Result: 0
[2024-09-14] MEDS: Hydrocortisone 1% CR 30 GM TUBE TP (13:52)
== END 2024-09-14 13:57 | disposition home or self-care (01) ==
PROVIDERS: Emergency Provider Emergency Medicine; PCP Family Medicine
DX: R21 Rash and other nonspecific skin eruption (principal); S50.812A Abrasion of left forearm, initial encounter; F17.210 Nicotine dependence, cigarettes, uncomplicated; X58.XXXA Exposure to other specified factors, initial encounter
CPT/HCPCS: 99283

== ENCOUNTER 2024-11-23 20:55 | Emergency (ER) | payer MEDICAID, SELFPAY ==
[2024-11-23 20:59] VITALS: BP 171/106; PULSE 78; RESP 16; TEMP 36.7; O2SAT 94
[2024-11-23 21:07] VITALS: BP 171/106; PULSE 78; RESP 16; TEMP 36.7; O2SAT 94
--- NOTE | 2024-11-23 21:32 | W.ED.GENAD ---
Discharge Plan Disposition Patient Disposition: Home Discharge Details Clinical Impression: Abscess, Elevated blood pressure reading Primary Care Provider: Srinivasa Schmidt ED Provider: Milena Og Discharge Instructions Instructions: Abscess Incision and Drainage ED Additional Instructions: Please call [facility] to schedule a follow-up appointment to discuss your blood pressure management. Use warm compresses on your armpit for 15-20 minutes at a time 4-5 times a day. Keep your wound clean and dry. Wash daily with antibacterial soap and water, then cover with a nonstick bandage. Return to emergency care if you develop worsening swelling/pain, redness, streaking up your arm, fevers/chills, or if you are very worried and need to be rechecked again immediately. Referrals: Srinivasa Schmidt DO [Primary Care Provider] - [facility] General Date/Time Provider Initiated Documentation: 11/23/24 20:58. HPI Narrative: Jeff is a 34 year old male who presents to the emergency department today for evaluation of pain to L armpit. He reports he first noticed a sharp pain a few days ago, says he thought it was a pinched nerve, but has become swollen and uncomfortable since he first noticed it. He initially attributed this to dental procedure. His has been putting antibiotic ointment on it because it has been rubbing. Says he is otherwise feeling well, denies arm pain, distal numbness/tingling, fever/chills, RUVALCABA, dizziness, general malaise, chest pain, shortness of breath, recent illness, change in PO intake, or change in bowel/bladder function. Past medical history is significant for hypertension alternating with hypotension, cirrhosis as blood pressure goes up and down, so he is not on blood pressure medications. Physical exam remarkable for tender, indurated nodule to L axilla with scant purulent drainage. No overlying erythema. Full painless ROM of arm, sensation grossly intact, +CMS to fingers. Jeff is overall well appearing, in no acute distress. History and presentation c/w uncomplicated abscess without overlying cellulitis or concern for systemic infection requiring bloodwork or diagnostic imaging. No indication at this time for systemic antibiotics. No red flag symptoms concerning for target end-organ damage associated with uncontrolled HTN. POCUS performed, approx 0.5 cm fluid collection noted in area of induration. I+D performed using #11 scapel after local anesthesia with 5 cc 2% lido with epi. Small amount of purulent drainage was expelled during injection. 1 cm incision made, no purulent drainage. Loculations were broken up using curved forceps. Pt tolerated procedure well. Jamel, associate partner applied bandage. Blood pressure noted to be elevated today; strongly recommend f/u with PCP for further evaluation/management of BP. Reviewed risks of hypertension and red flag symptoms. Reviewed discharge instructions with patient and his , including symptomatic management and red flags indicating need for return to emergency care Related Data Allergies Allergy/AdvReac Type Severity Reaction Status Date / Time No Known Allergies Allergy Verified 11/23/24 21:08 General Stated Complaint: Cellulitis PARKER: 3 Review of Systems Narrative: see HPI Exam Const General: cooperative, healthy appearing, comfortable and no acute distress Nutritional Appearance: average body habitus Orientation: alert and oriented x3 Neck Neck: normal visual inspection Resp Effort & Inspection: normal respiratory effort and able to speak in complete sentences Skin Lesions: lesion noted left axilla size (2 cm diameter), tender and other (indurated) Rashes: no rashes Trauma: no lacerations or abrasions Neuro General: tone normal, moves all extremities and no focal motor deficits Sensory Exam: no sensory deficits noted Extrem Left upper extremity: full ROM, normal capillary refill, edema, no joint enlargement and shoulder/upper arm Details: inspection abnormal and normal ROM Course Vital Signs Vital signs: Vital Signs Temperature 36.7 C 11/23/24 20:59 Pulse 78 11/23/24 20:59 Respiratory Rate 16 11/23/24 20:59 Blood Pressure 171/106 H 11/23/24 20:59 Pulse Oximetry 94 11/23/24 20:59 Temperature 36.7 C 11/23/24 21:07 Temperature Source Oral 11/23/24 21:07 Pulse 78 11/23/24 21:07 Respiratory Rate 16 11/23/24 21:07 Blood Pressure 171/106 H 11/23/24 21:07 Blood Pressure Position Sitting 11/23/24 21:07 Pulse Oximetry 94 11/23/24 21:07 Pain Level 10 11/23/24 20:59 Procedure Abscess Drainage Provider that performed the procedure: Milena More Patient Consented: Verbally Location of Exam: Axilla/left side. Ultrasound: Used/Image Saved (used prior to I+D) Complications: None Medical Decision Making Quality:SDOH Health Related Social Needs: No Data to Display PFSH All Active Problems (Updated 11/23/24 @ 22:09 by Milena More) Elevated blood pressure reading (Acute) Abscess (Acute) Cephalgia (Acute) Leukocytosis (Acute) Adverse effect of COVID-19 vaccine (Acute) Essential hypertension (Acute 11/02/17) Medical History (Updated 11/23/24 @ 22:09 by Milena More) No significant past medical history Surgical History No significant past surgical history Social History Smoking/Tobacco Use Status: Current every day Tobacco Type: cigarettes Counseling given: other Details: patient is decreasing cigs on his own, down to 8/day Smoking risk assessment performed?: Yes Alcohol Intake: current Alcohol Intake frequency: 0-2 drinks per day Alcohol type: hard liquor Drug use: Socially Substance use type: marijuana Adopted: Yes Foster care: Yes (in the past, age 12-18) Household members: significant other Number of Children: 1 current occupation: 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 Sexually active: Yes Do you feel safe at home: Yes Do you feel safe in your relationship?: Yes PAWSS Have you Been Recently Intoxicated or Drunk Within the Last 30 days?: No Have you Ever Experienced Previous Episodes of Alcohol Withdrawal?: No Have you ever Experienced Withdrawal Seizures?: No Have you ever Experienced Delirium Tremens(DT)s?: No Have you ever undergone Alcohol Rehabilitation Treatment (i.e, inpt ot outpatient treatment programs)?: No Have you ever Experienced Blackouts?: No Have you ever Combined Alcohol with other Downers within the last 90 days?: No Have you ever Combined Alcohol with any other Substance of Abuse during the last 90 days?: No Positive Blood Alcohol level on Presentation? [PCS.BAL]: No Evidence of Increased Autonomic Activity (i.e. HR>120, tremor, sweating, agitation, nausea)?: No Result: 0 POCUS Exam (ED) Limited Soft Tissue Exam DATE OF EXAM: 11/23/24 PROVIDER THAT PERFORMED THE STUDY: Milena More IS THIS A REPEAT EXAM DURING THIS ENCOUNTER: No LOCATION OF EXAM: Axilla/left side REASON FOR EXAM: Abscess VISUALIZED STRUCTURES: Subcutaneous tissue PERTINENT FINDINGS/IMPRESSION: Abscess L axilla . Exam Complete
[2024-11-23 21:50] VITALS: BP 166/92; PULSE 84; RESP 18; O2SAT 95
[2024-11-23 22:40] VITALS: BP 168/90; PULSE 90; RESP 16; O2SAT 95
== END 2024-11-23 22:42 | disposition home or self-care (01) ==
PROVIDERS: Emergency Provider Nurse Practitioner Family; PCP Family Medicine
DX: L02.91 Cutaneous abscess, unspecified (principal); R03.0 Elevated blood-pressure reading, without diagnosis of hypertension
CPT/HCPCS: 10060; 76882; 76942; J2004

== ENCOUNTER 2024-11-29 23:52 | Emergency (ER) | payer MEDICAID, SELFPAY ==
[2024-11-29 23:55] VITALS: BP 173/102; PULSE 78; RESP 18; TEMP 36.6; O2SAT 97
[2024-11-30 00:03] VITALS: RESP 19
[2024-11-30 00:26] VITALS: BP 159/89
--- NOTE | 2024-11-30 00:45 | W.ED.GENAD ---
Discharge Plan Disposition Patient Disposition: Home Condition: Good Discharge Details Clinical Impression: Essential hypertension Primary Care Provider: Srinivasa Schmidt ED Provider: Pradeep Glover Home Meds and New Rx's Prescriptions: No Action amlodipine 2.5 mg tablet 2.5 mg PO DAILY Qty: 30 0RF Discharge Instructions Instructions: Controlling your blood pressure through lifestyle Additional Instructions: At this time your blood pressure has normalized without additional intervention. Please avoid salty foods, take your medications as prescribed. Continue taking your antihypertensive agent. If you notice any worsening of your symptoms, or any new symptoms such as vomiting, diarrhea, fever, chills, shortness of breath, chest pain, numbness, weakness, or fainting , please return immediately to the emergency department for reevaluation. Please follow up with your primary care provider as soon as possible for reassessment and reevaluation. As always, it was a pleasure participating in your medical care today. Referrals: Srinivasa Schmidt DO [Primary Care Provider] - Discharge Data Discharge Date/Time-TO BE ENTERED AT DEPARTURE: 11/30/24 00:52 HPI General Date/Time Provider Initiated Documentation: 11/29/24 23:56. HPI Narrative: This is a very pleasant 34-year-old male with a past medical history of recently diagnosed hypertension who was recently started on amlodipine 2.5 mg daily, first dose was this morning, presents today for elevated blood pressure. Patient states that at 11:18 PM he checked his blood pressure and noted that it was in the 190s. 911 was called, EMS arrived, and they got a much lower blood pressure (exact number uncertain). After which the patient came to the ED for further evaluation. He denies any other complaints whatsoever. He denies any headache, neck pain, chest pain or syncope. No change in diet. No other modifying factors. Related Data Home Medications ?Medication ?Instructions ?Recorded ?Confirmed amlodipine 2.5 mg tablet 2.5 mg PO DAILY #30 tabs 11/28/24 11/30/24 Previous Rx's ?Medication ?Instructions ?Recorded amlodipine 2.5 mg tablet 2.5 mg PO DAILY #30 tabs 11/28/24 Allergies Allergy/AdvReac Type Severity Reaction Status Date / Time No Known Allergies Allergy Verified 11/30/24 00:02 General Stated Complaint: GenMedical PARKER: 4 Exam Narrative Exam Narrative: 1.Const: Well-nourished, Well-developed, appearing stated age 2.Eyes: PERRL, no conjunctival injection, and symmetrical lids. 3.ENT: Atraumatic external nose and ears. Moist MM. Neck: Symmetric, trachea midline, No thyromegaly. 4.CVS: +S1/S2, Peripheral pulses 2+ and equal in all extremities. Brisk capillary refill in all extremities. 5.RESP: Unlabored respiratory effort. Clear to auscultation bilaterally. No wheezes rales or rhonchi 6.GI: Soft, Nontender/Nondistended, No hepatosplenomegaly. No guarding or rebound. 7.MSK: Normocephalic/Atraumatic, Extremities w/o deformity or ttp No cyanosis or clubbing, Normal movement of all extremities 8.Skin: Warm, Dry. No rashes or lesions. 9.Neuro: ball warper tender II-XII grossly intact. Sensation grossly intact, no focal neurologic deficits. 10.Psych: (AAO) x3. Appropriate mood and affect Course Vital Signs Vital signs: Vital Signs Temperature 36.6 C 11/29/24 23:55 Pulse 78 11/29/24 23:55 Respiratory Rate 18 11/29/24 23:55 Blood Pressure 173/102 H 11/29/24 23:55 Pulse Oximetry 97 11/29/24 23:55 Temperature 36.6 C 11/29/24 23:55 Temperature Source Temporal Artery Scan 11/29/24 23:55 Pulse 78 11/29/24 23:55 Respiratory Rate 19 11/30/24 00:03 Respiratory Effort Normal, Non-Labored 11/30/24 00:03 Respiratory Depth Normal 11/30/24 00:03 Respiratory Pattern Normal 11/30/24 00:03 Blood Pressure 173/102 H 11/29/24 23:55 Blood Pressure Position Sitting 11/29/24 23:55 Pulse Oximetry 97 11/29/24 23:55 Oxygen Delivery Method Room Air 11/29/24 23:55 Oxygen Flow Rate 0 11/29/24 23:55 Pain Level 0 11/29/24 23:55 Medical Decision Making This is a very pleasant 34-year-old male with a past medical history of recently diagnosed hypertension who was recently started on amlodipine 2.5 mg daily, first dose was this morning, presents today for elevated blood pressure. Patient states that at 11:18 PM he checked his blood pressure and noted that it was in the 190s. 911 was called, EMS arrived, and they got a much lower blood pressure (exact number uncertain). After which the patient came to the ED for further evaluation. He denies any other complaints whatsoever. He denies any headache, neck pain, chest pain or syncope. No change in diet. No other modifying factors. Assessment demonstrates a notably well-appearing male, current blood pressure is in the 170s systolic. No chest pain to suggest ACS, no headache to suggest aneurysm. No symptoms to suggest pheochromocytoma. At this time as there is no evidence of hypertensive emergency, we did recommend observation. Patient was observed for 30 minutes, repeat blood pressure without intervention is 148/87. Patient remains well. Patient stable for discharge. No evidence of acute life-threatening etiology at this time. Recommend continued avoidance of salt, continued use of antihypertensive, and close follow-up with PCP. Discussed red flags for which to return. I have extensively reviewed the treatment plan and discharge instructions with the patient. I have addressed all patient concerns at this time. The patient was made aware of what symptoms to monitor for that would warrant a return to the emergency department. Discussed the plan with the patient, they demonstrate verbal understanding and agreement with our assessment and plan at this time. The documentation in this chart was dictated using [employer] dictation software. Please excuse any dictation errors. Quality:SDOH Health Related Social Needs: No Data to Display PFSH All Active Problems (Updated 11/30/24 @ 00:45 by Pradeep Glover DO) Hypertension (Chronic) Urinary hesitancy (Acute) Elevated blood pressure reading (Acute) Abscess (Acute) Cephalgia (Acute) Leukocytosis (Acute) Adverse effect of COVID-19 vaccine (Acute) Essential hypertension (Acute 11/02/17) Medical History (Updated 11/30/24 @ 00:45 by Pradeep Glover DO) No significant past medical history Surgical History No significant past surgical history Social History Smoking/Tobacco Use Status: Current every day Tobacco Type: cigarettes Years smoked: 11 Counseling given: other Details: patient is decreasing cigs on his own, down to 8/day Smoking risk assessment performed?: Yes Alcohol Intake: current Alcohol Intake frequency: 0-2 drinks per day Alcohol type: hard liquor Substance use type: does not use Adopted: Yes Foster care: Yes (in the past, age 12-18) Household members: significant other Housing: apartment Number of Children: 1 current occupation: 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 Sexually active: Yes Do you feel safe at home: Yes Do you feel safe in your relationship?: Yes PAWSS Have you Been Recently Intoxicated or Drunk Within the Last 30 days?: No Have you Ever Experienced Previous Episodes of Alcohol Withdrawal?: No Have you ever Experienced Withdrawal Seizures?: No Have you ever Experienced Delirium Tremens(DT)s?: No Have you ever undergone Alcohol Rehabilitation Treatment (i.e, inpt ot outpatient treatment programs)?: No Have you ever Experienced Blackouts?: No Have you ever Combined Alcohol with other Downers within the last 90 days?: No Have you ever Combined Alcohol with any other Substance of Abuse during the last 90 days?: No Positive Blood Alcohol level on Presentation? [PCS.BAL]: No Evidence of Increased Autonomic Activity (i.e. HR>120, tremor, sweating, agitation, nausea)?: No Result: 0
[2024-11-30 00:48] VITALS: BP 148/87; PULSE 76
== END 2024-11-30 00:52 | disposition home or self-care (01) ==
PROVIDERS: Emergency Provider Student in an Organized Health Care Education/Training Program; PCP Family Medicine
DX: R42 Dizziness and giddiness (principal); I10 Essential (primary) hypertension
CPT/HCPCS: 99283; 99282

== ENCOUNTER 2024-12-24 13:36 | Outpatient (REF) | payer MEDICAID, SELFPAY | END 2024-12-24 13:37 | disposition home or self-care (01) | LOC: LBN 13:36 | PROVIDERS: PCP Family Medicine; Visit Provider Physician Assistant Medical | DX: J02.9 Acute pharyngitis, unspecified (principal) | CPT/HCPCS: 87070 ==

== ENCOUNTER 2024-12-24 13:38 | Outpatient (CLI) | payer MEDICAID, SELFPAY ==
--- NOTE | 2024-12-24 | DI.RAD_ITS ---
Exam(s) XR CHEST 2V PA LATERAL EXAM: XR CHEST 2V PA LATERAL CLINICAL HISTORY: Mild asthma with exacerbation, unspecified whether persistent, J45.901 TECHNIQUE: 2D digital imaging was performed of the chest. Two images were obtained. PA and lateral views were obtained. COMPARISON: No exams were available for comparison FINDINGS: MEDIASTINUM: Normal. HEART: Normal. PULMONARY VASCULATURE: Normal. LUNGS: No focal consolidating infiltrates are seen. There is mild bronchial wall thickening seen in the perihilar regions which can be seen with bronchitis. PLEURAL SPACE: No pleural effusion or pneumothorax. BONE:Within normal limits for the patient's age. OTHER FINDINGS:Normal. IMPRESSION: Bronchial wall thickening centrally which can be seen with bronchitis. No focal consolidating infilt rates are present. DATA REPOSITORY: RADIATION DOSE DELIVERED:
== END 2024-12-24 13:58 ==
LOC: DI 13:38
PROVIDERS: PCP Family Medicine; Visit Provider Physician Assistant Medical
DX: J45.901 Unspecified asthma with (acute) exacerbation (principal)
CPT/HCPCS: 71046

== ENCOUNTER 2025-01-30 12:01 | Outpatient (CLI) | payer MEDICAID, SELFPAY ==
[2025-01-30 12:01] LABS: Abs Immature Grans 0.10 10^3/uL (0.0-0.06); HCT 45.3 % (40.0-50.0); HGB 15.9 g/dL (13.5-17.5); Immature Grans % 0.7 %; MCH 29.6 pg (27.0-33.0); MCHC 35.1 % (32.0-36.0); MCV 84 fL (80-95); MPV 10.2 fL (8.0-11.0); Platelet Count 220 10^3/uL (130-400); RBC 5.37 10^6/uL (4.36-5.78); RDW 13.5 % (11.8-14.1); RDW-SD 41.8 fL; WBC 14.71 10^3/uL (4.4-10.8)
[2025-01-30 12:20] LABS: Hemoglobin A1C 5.5 % (<5.7)
[2025-01-30 12:32] LABS: Glucose Negative (Negative)
[2025-01-30 12:42] LABS: C & S Indicated? No; RBC Negative HPF (0-2); WBC 0-2 HPF (0-5)
[2025-01-30 13:25] LABS: Albumin 3.7 g/dL (3.4-5.0); Alkaline Phosphatase 104 U/L (46-116); Anion Gap 17.9 mmol/L (3-11); BUN 11 mg/dL (7-18); Bilirubin, Total 0.5 mg/dL (0.2-1.0); CO2 19.1 mmol/L (21.0-32.0); Calcium 8.5 mg/dL (8.5-10.1); Chloride 101 mmol/L (98-107); Cholesterol 432 mg/dL (<200); Estimated GFR 117.63 (mL/min/1.73m2); Glucose 144 mg/dL (74-106); HDL Cholesterol 36 mg/dL (>or=40); Potassium 3.5 mmol/L (3.5-5.1); Sodium 138 mmol/L (136-145); TSH 1.05 uIU/mL (0.36-3.74); Total Protein 7.6 g/dL (6.4-8.2)
[2025-01-30 14:04] LABS: RBC Morphology Normal
[2025-01-30 15:07] LABS: Triglyceride 1538 mg/dL (<150)
[2025-01-30 15:24] LABS: ALT 45 U/L (16-63); AST 32 U/L (15-37)
[2025-01-30 16:15] LABS: LDL CHOLESTEROL 111 mg/dL (<100)
[2025-01-30 18:39] LABS: PSA, Screening 0.2 ng/mL (<=2.5)
== END 2025-01-30 12:02 | disposition home or self-care (01) ==
LOC: LBO 12:02
PROVIDERS: PCP Family Medicine; Visit Provider Family Medicine
DX: R39.11 Hesitancy of micturition (principal); I10 Essential (primary) hypertension
CPT/HCPCS: 36415; 80053; 80061; 83721; 84153; 81003; 81015; 83036; 84443; 85025

== ENCOUNTER 2025-03-10 19:25 | Emergency (ER) | payer MEDICAID, SELFPAY ==
[2025-03-10 19:55] VITALS: BP 129/86; PULSE 76; RESP 18; TEMP 36.8; O2SAT 94
--- NOTE | 2025-03-10 20:15 | DI.RAD_ITS ---
Exam(s) XR FOOT RT COMPLETE EXAM: XR FOOT RT COMPLETE CLINICAL HISTORY: Right heel pain. TECHNIQUE: 2D digital imaging was performed. Three views. COMPARISON: No exams were available for comparison FINDINGS: BONES: No acute fracture is present. No bony destructive lesion is seen. Tiny heel spurs. JOINTS: No dislocation present. SOFT TISSUE: Normal. IMPRESSION: Unremarkable radiographs of the right foot. The preliminary [facility] report was reviewed. DATA REPOSITORY: RADIATION DOSE DELIVERED:
--- NOTE | 2025-03-10 20:49 | ED.GENADUL_ITS ---
Discharge Plan Disposition Patient Disposition: Home Condition: Stable Discharge Details Clinical Impression: Foot pain, right Primary Care Provider: Srinivasa Schmidt ED Provider: Cassie Lam Home Meds and New Rx's Prescriptions: No Action amlodipine 5 mg tablet 5 mg PO DAILY Qty: 90 3RF albuterol sulfate 90 mcg/actuation HFA aerosol inhaler INHALATION Patient Comments: INHALE TWO PUFFS BY MOUTH EVERY 4 HOURS NEEDED FOR COUGHING FITS, FOR SHORTNESS OF BREATH OR WHEEZE Discharge Instructions Instructions: Heel Pain Caused by Plantar Fasciitis (DC) Additional Instructions: No evidence of acute fracture noted on the x-rays. You do have a small heel spur noted to the bottom of your heel, please wear the walking boot as needed for comfort. Rest ice compression elevation. Try to stay off foot is much as possible. Please take Tylenol or Ibuprofen with food every 4-6 hours as needed for pain and swelling. Please follow-up with your primary care provider. Follow up with primary care provider in 3-5 days. Return to ED sooner if any worsening or concerns. Referrals: Srinivasa Schmidt DO [Primary Care Provider, Medicine] - 3 days Referral Note: ER follow-up call for an appointment Discharge Data Discharge Date/Time-TO BE ENTERED AT DEPARTURE: 03/10/25 21:28 HPI General Mode of arrival: ambulatory . Date/Time Provider Initiated Documentation: 03/10/25 20:25 . Limitations to Documentation: no limitations . Information obtained by: patient, RN notes reviewed and old records reviewed . HPI Narrative: 34-year-old male presents to the ER with a chief complaint of right heel pain x 1 month. Reports that he kicked a tire room and injured his foot. He reports now increased pain with weightbearing to his heel. No obvious deformity he does have some midfoot pain with palpation to the plantar surface. Distal CMS intact. Patient reports medical history of hypertension. 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 Related Data Home Medications ?Medication ?Instructions ?Recorded ?Confirmed amlodipine 5 mg tablet 5 mg PO DAILY #90 tabs 01/3003/10/25 albuterol sulfate 90 mcg/actuation inhalation 03/10/25 aerosol inhaler Previous Rx's ?Medication ?Instructions ?Recorded amlodipine 5 mg tablet 5 mg PO DAILY #90 tabs 01/30 Allergies Allergy/AdvReac Type Severity Reaction Status Date / Time No Known Allergies Allergy Verified 01/30/25 13:00 General Stated Complaint: Orthopedic PARKER: 4 Review of Systems Musculoskeletal Musculoskeletal: Reports as per HPI and Reports arthralgias (Foot pain) Exam Extrem Right lower extremity: foot Details: normal capillary refill, normal to inspection, tenderness Location: of the plantar foot Location: proximally, of the calcaneus Details: point tenderness; none with a squeeze and of the mid foot Location: along the plantar surface and vascular exam Details: dorsalis pedis pulse present and normal capillary refill; no edema, no abrasion, no laceration, no ecchymosis, no crepitus and no puncture wound Course Vital Signs Vital signs: Vital Signs Temperature 36.8 C 03/10/25 19:55 Pulse 76 03/10/25 19:55 Respiratory Rate 18 03/10/25 19:55 Blood Pressure 129/86 03/10/25 19:55 Pulse Oximetry 94 03/10/25 19:55 Temperature 36.8 C 03/10/25 19:55 Temperature Source Temporal Artery Scan 03/10/25 19:55 Pulse 76 03/10/25 19:55 Respiratory Rate 18 03/10/25 19:55 Blood Pressure 129/86 03/10/25 19:55 Blood Pressure Position Sitting 03/10/25 19:55 Pulse Oximetry 94 03/10/25 19:55 Oxygen Delivery Method Room Air 03/10/25 19:55 Oxygen Flow Rate 0 03/10/25 19:55 Pain Level 9 03/10/25 20:19 Medical Decision Making 34-year-old male presents to the ER with a chief complaint of right heel pain x 1 month. Reports that he kicked a tire room and injured his foot. He reports now increased pain with weightbearing to his heel. No obvious deformity noted. No ankle pain. Does have tenderness to his midfoot with palpation. Differential diagnosis includes but not limited to chronic fracture, occult fracture, plantar fasciitis, heel spur. X-ray right foot ordered. Patient has been taking Tylenol ibuprofen last took ibuprofen last night. I did offer him analgesic which he declined. Patient requesting to leave, as he has to be at work at 2200. Xray result is pending, will place in a walking boot and have patient follow up. X-ray shows no acute fracture, and the sulfites noted in the calcaneus. I do mckoy spect possible occult fracture as noted differential above versus plantar fasciitis. Patient discharged into the care of his family, This document was dictated using [employer] system, disregard any typos or oddities of phrase. PFSH All Active Problems (Updated 03/10/25 @ 21:24 by Cassie Lam NP) Foot pain, right (Acute) Bronchitis (Acute) Hypertension (Chronic) Urinary hesitancy (Acute) Cephalgia (Acute) Leukocytosis (Acute) Adverse effect of COVID-19 vaccine (Acute) Essential hypertension (Acute 11/02/17) Medical History (Updated 03/10/25 @ 21:24 by Cassie Lam NP) No significant past medical history Surgical History No significant past surgical history Social History Smoking/Tobacco Use Status: Current every day Tobacco Type: cigarettes Years smoked: 11 Counseling given: other Details: patient is decreasing cigs on his own, down to 8/day Smoking risk assessment performed?: Yes Alcohol Intake: current Alcohol Intake frequency: 0-2 drinks per day Alcohol type: hard liquor Substance use type: does not use Adopted: Yes Foster care: Yes (in the past, age 12-18) Household members: significant other Housing: apartment Number of Children: 1 current occupation: 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 Sexually active: Yes Do you feel safe at home: Yes Do you feel safe in your relationship?: Yes
--- NOTE | 2025-03-10 21:23 | DI.[facility]_ITS ---
PROCEDURE INFORMATION: Exam: XR Right Foot Exam date and time: 03/10/2025 8:45 PM Age: 34 years old Clinical indication: Pain; Heel; Right; Additional info: Right heel pain TECHNIQUE: Imaging protocol: Radiologic exam of the right foot. Views: 3 or more views. COMPARISON: No relevant prior studies available. FINDINGS: Bones/joints: There is no acute fracture. Enthesophytes are noted in the calcaneus. Soft tissues: No significant subcutaneous soft tissue abnormality. IMPRESSION: No acute findings. Dictated and Authenticated by: Mitzi Gregory MD. Orderin Carole Matthews MD
--- NOTE | 2025-03-11 07:07 | NUR.NOTE ---
Access chart to print the demographic sheet and get the discharge diagnosis for [facility] billing requisition. Nursing Note:
== END 2025-03-10 21:28 | disposition home or self-care (01) ==
PROVIDERS: Emergency Provider Registered Nurse Emergency; PCP Family Medicine
DX: M79.671 Pain in right foot (principal)
CPT/HCPCS: 99283 ×2; 73630

== ENCOUNTER 2025-04-01 19:20 | Emergency (ER) | payer MEDICAID, SELFPAY ==
[2025-04-01 19:34] VITALS: BP 177/105; PULSE 85; RESP 18; TEMP 36.6; O2SAT 96
--- NOTE | 2025-04-01 19:47 | W.ED.GENAD ---
Discharge Plan Disposition Patient Disposition: Home Discharge Details Clinical Impression: Reaction to hymenoptera sting, Elevated blood pressure reading with diagnosis of hypertension Primary Care Provider: Srinivasa Schmidt ED Provider: Daniel Wesley Home Meds and New Rx's Prescriptions: Continued amlodipine 5 mg tablet 5 mg PO DAILY Qty: 90 3RF albuterol sulfate 90 mcg/actuation HFA aerosol inhaler 2 puff INHALATION Q6H PRN Patient Comments: INHALE TWO PUFFS BY MOUTH EVERY 4 HOURS NEEDED FOR COUGHING FITS, FOR SHORTNESS OF BREATH OR WHEEZE Discharge Instructions Additional Instructions: You are seen in the emergency department for your bee stings. You have no signs of a systemic allergic reaction at this point in time. You have no signs of anaphylaxis. As we discussed if you develop any shortness of breath nausea or vomiting or have any other concerns please return to the emergency department. Please ice your bee stings for 20 minutes on 20 minutes off. You received steroids which should improve your symptoms. As we discussed please follow-up with your primary care provider concerning your blood pressure. For your pain please take medications as follows: 1. Take acetaminophen (Tylenol), 1,000 mg (two 500 mg tabs) every 6 hours [2. Take ibuprofen (Advil), 400 mg every 6 hours.] Discharge Data Discharge Date/Time-TO BE ENTERED AT DEPARTURE: 04/01/25 20:00 HPI General Date/Time Provider Initiated Documentation: 04/01/25 19:47. HPI Narrative: MDM This is a very well-appearing normothermic and not tachycardic 34-year-old male with remote prior history of anaphylaxis but no signs of anaphylaxis at the moment for which patient will receive empiric trial of discharge with expectant outpatient management following dexamethasone. No oral swelling to suggest benefit from epinephrine. Patient and I discussed that if he developed any shortness of breath nausea or vomiting or any systemic symptoms that he should return to the ED. For pain management we discussed that he should take acetaminophen and ibuprofen. We discussed icing for 20 minutes on 20 minutes off. No signs of cellulitis at the moment. No fluctuance to suggest abscess. No pain out of proportion to suggest necrotizing soft tissue infection. Patient did have elevated blood pressure. He is on outpatient oral antihypertensive medications from his PCP. Will recheck his blood pressure prior to discharge. I advised outpatient follow-up with his PCP as I have no suspicion for any endorgan damage. Patient understood his return indications and was discharged with empiric trial of recommended outpatient management. At the time of discharge his blood pressure had not improved significantly. HPI The patient presents for evaluation of multiple stings. He experienced several stings on the back of his legs, left foot, and left arm. He reports no swelling in the back of his mouth but does mention feelings of dizziness. He has a history of anaphylaxis from his younger years, which required the use of an EpiPen. However, he did not require intubation at that time. He took Benadryl at 11:00 AM today. Exam General: Well-appearing in no acute distress speaking in complete sentences. Head: Normocephalic, atraumatic. Eye: Extraocular eye movements intact. No conjunctival injection. No scleral icterus. Ear, nose, mouth, throat: Grossly normal inspection. Normal voice, handling secretions normally. No posterior oropharynx swelling nor erythema. Neck: Trachea midline. Cardiovascular: Well-perfused distal extremities. Respiratory: Nonlabored respiration. Clear lungs bilaterally. Gastrointestinal: Nondistended abdomen. Musculoskeletal: Mild erythema to posterior aspect proximal right thigh less than 1 cm in diameter. On right lateral thigh there is an approximately 1 cm erythematous area. Left anterior foot there is another area of erythema less than 1 cm in diameter. On the proximal left arm there is an approximately 1 cm area of erythema. Skin: Normal for age and race, grossly normal temperature and turgor. No acute rash. Neurologic: Alert and appropriate, no apparent acute deficits. Psychiatric: Mood and manner are appropriate. Grooming and personal hygiene are appropriate. Related Data Home Medications ?Medication ?Instructions ?Recorded ?Confirmed amlodipine 5 mg tablet 5 mg PO DAILY #90 tabs 01/30/25 04/01/25 albuterol sulfate 90 mcg/actuation 2 puff inhalation Q6H PRN 03/10/25 04/01/25 aerosol inhaler Previous Rx's ?Medication ?Instructions ?Recorded amlodipine 5 mg tablet 5 mg PO DAILY #90 tabs 01/30/25 Allergies Allergy/AdvReac Type Severity Reaction Status Date / Time No Known Allergies Allergy Verified 04/01/25 19:36 General Stated Complaint: Allergic PARKER: 4 Course Vital Signs Vital signs: Vital Signs Temperature 36.6 C 04/01/25 19:34 Pulse 85 04/01/25 19:34 Respiratory Rate 18 04/01/25 19:34 Blood Pressure 177/105 H 04/01/25 19:34 Pulse Oximetry 96 04/01/25 19:34 Temperature 36.6 C 04/01/25 19:34 Temperature Source Tympanic 04/01/25 19:34 Pulse 85 04/01/25 19:34 Respiratory Rate 18 04/01/25 19:34 Blood Pressure 177/105 H 04/01/25 19:34 Pulse Oximetry 96 04/01/25 19:34 Pain Level 5 04/01/25 19:34 PFSH All Active Problems (Updated 04/01/25 @ 19:48 by Daniel Wesley MD) Elevated blood pressure reading with diagnosis of hypertension (Acute) Reaction to hymenoptera sting (Acute) Foot pain, right (Acute) Bronchitis (Acute) Hypertension (Chronic) Urinary hesitancy (Acute) Cephalgia (Acute) Leukocytosis (Acute) Adverse effect of COVID-19 vaccine (Acute) Essential hypertension (Acute 11/02/17) Medical History (Updated 04/01/25 @ 19:48 by Daniel Wesley MD) No significant past medical history Surgical History No significant past surgical history Social History Smoking/Tobacco Use Status: Current every day Tobacco Type: cigarettes Years smoked: 11 Counseling given: other Details: patient is decreasing cigs on his own, down to 8/day Smoking risk assessment performed?: Yes Alcohol Intake: current Alcohol Intake frequency: 0-2 drinks per day Alcohol type: hard liquor Substance use type: does not use Adopted: Yes Foster care: Yes (in the past, age 12-18) Household members: significant other Housing: apartment Number of Children: 1 current occupation: 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 Sexually active: Yes Do you feel safe at home: Yes Do you feel safe in your relationship?: Yes
[2025-04-01 19:56] VITALS: BP 174/88
[2025-04-01] MEDS: Dexamethasone 4 MG TAB 8 MG PO (19:57)
[2025-04-01] MEDS: Acetaminophen 500 MG TAB 1000 MG PO (19:57)
== END 2025-04-01 20:00 | disposition home or self-care (01) ==
PROVIDERS: Emergency Provider Emergency Medicine; PCP Family Medicine
DX: T63.441A Toxic effect of venom of bees, accidental (unintentional), initial encounter (principal); R03.0 Elevated blood-pressure reading, without diagnosis of hypertension
CPT/HCPCS: 99283 ×2; J8540